=== PATIENT | male | born 1990 | race Caucasian/White ===

== ENCOUNTER 2016-11-12 02:25 | Emergency (ER) | payer OTHER ==
[~2016-11-12] VITALS: Ht 175.3 cm; Wt 113.4 kg
[2016-11-12 02:30] VITALS: BP_SYST 143
[2016-11-12 02:42] VITALS: BP_SYST 143
== END 2016-11-12 02:42 ==
LOC: SED 02:25
DX: Z02.89 Encounter for other administrative examinations (principal)